=== PATIENT | female | born 1965 | race Caucasian/White ===

== ENCOUNTER 2017-03-04 10:34 | Emergency (ER) | payer OTHER ==
[~2017-03-04] VITALS: Ht 157.5 cm; Wt 78.9 kg
[~2017-03-04 10:34] MED LIST: ALBU8.5H3 INH; CITA-104 PO; GLIM2TAB PO; GLIPIZIDE; METF500T4 PO; METFORMIN; SITA100T8 PO; TAMS0.4C2 PO; TRAM50TA2 PO; TRAMADOL; TRAZ50TA18 PO
[2017-03-04 10:39] VITALS: Ht 157.5 cm; Wt 78.9 kg
[2017-03-04] MEDS ORDERED: ONDANSETRON 4 MG INJ IV STA (11:02)
[2017-03-04] MEDS ORDERED: SOD CHLORIDE 0.9% 1,000 ML IV STA (11:02)
[2017-03-04] MEDS ORDERED: KETOROLAC 30 MG INJ IV STA (11:02)
[2017-03-04 11:59] LABS: ALBUMIN 4.8 g/dl (3.3-4.9); ALBUMIN/GLOBULIN RATIO 1.06; BILIRUBIN,INDIRECT 0.6 mg/dl (0-1.1); BILIRUBIN,TOTAL 0.6 mg/dl (0.2-1.3); CALCIUM 10.1 mg/dl (8.4-10.2); CREATININE 0.56 mg/dl (0.44-1.00); TOTAL PROTEIN 9.3 g/dl (6.1-8.1)
[2017-03-04 12:00] LABS: ADD UMIC YES; UR ASCORBIC ACID NEGATIVE (NEGATIVE); UR BACTERIA FEW /HPF (NONE SEEN); UR BILIRUBIN (Dip) NEGATIVE (NEGATIVE); UR BLOOD (Dip) NEGATIVE (NEGATIVE); UR CLARITY SLIGHTLY CLOUDY (CLEAR); UR COLOR YELLOW (YELLOW); UR GLUCOSE (Dip) NEGATIVE (NEGATIVE); UR KETONES (Dip) NEGATIVE (NEGATIVE); UR LEUKOCYTE ESTERASE (Dip) 2+ Leu/ul (NEGATIVE); UR MUCUS FEW /HPF (NONE SEEN); UR NITRITE (Dip) NEGATIVE (NEGATIVE); UR RBC 3 /HPF (0-5); UR SPECIFIC GRAVITY (Dip) 1.019 (1.003-1.030); UR SQUAMOUS EPITHELIAL CELL MODERATE /HPF (FEW); UR TOTAL PROTEIN (Dip) NEGATIVE (NEGATIVE); UR UROBILINOGEN (Dip) NEGATIVE (NEGATIVE)
[2017-03-04 12:07] LABS: BASOPHILS % 0.3 % (0.0-2.0); EOSINOPHILS # 0.1 10^3/ul (0.0-0.5); EOSINOPHILS % 0.9 % (0.0-7.0); HEMATOCRIT 41.1 % (37.0-47.0); HEMOGLOBIN 13.9 g/dl (12.0-16.0); LYMPHOCYTES # 2.3 10^3/ul (0.8-2.9); LYMPHOCYTES % 33.2 % (15.0-51.0); MEAN CORPUSCULAR HEMOGLOBIN 29.6 pg (29.0-33.0); MEAN CORPUSCULAR HGB CONC 33.8 g/dl (32.0-37.0); MEAN CORPUSCULAR VOLUME 87.4 fl (82.0-101.0); MEAN PLATELET VOLUME 10.8 fl (7.4-10.4); MONOCYTE # 0.4 10^3/ul (0.3-0.9); MONOCYTES % 5.7 % (0.0-11.0); NEUTROPHILS % 59.6 % (39.0-77.0); PLATELET COUNT 247 10^3/UL (140-415); RED CELL DISTRIBUTION WIDTH 12.8 % (11.5-14.5)
--- NOTE | 2017-03-04 12:56 | RADRPT ---
PROCEDURE: CT Abdomen and Pelvis without contrast. CLINICAL INDICATION: Diarrhea, lower abdominal pain TECHNIQUE: CT of the abdomen and pelvis was performed on a multi-detector scanner without IV contr ast. Coronal and sagittal images were reformatted from the axial data set. One or more of the foll owing dose reduction techniques were used: automated exposure control, adjustment of the mA and/or k V according to patient size, use of iterative reconstruction technique. CTDI = 20.33 mGy. DLP = 124 6.34 mGy-cm. COMPARISON: CT, 09/07/2015 FINDINGS: CT abdomen: The lung bases are clear. The heart size is normal, without pericardial effusion. The liver is fat ty infiltrated, without evidence of focal mass. Gallbladder is surgically absent. Biliary tree, pa ncreas, spleen and adrenal glands are unremarkable. Small nonobstructive renal calculi are seen fahad aterally, without ureterolithiasis or obstructive uropathy. Chronic renal cortical scarring is seen on the right as well. The stomach is grossly unremarkable. The aorta is of normal caliber. There is no retroperitoneal lymphadenopathy. The jay hepatis reg ion is clear. CT pelvis: No bowel obstruction, free intraperitoneal air or abscess is identified. Scattered colonic divertic rachel are seen without diverticulitis. The appendix is well visualized and normal. There is no colit is. Fat containing umbilical hernia is noted without incarceration. Urinary bladder is grossly unr emarkable. Uterus is surgically absent. No pelvic mass, free fluid or lymphadenopathy is identifie d. The surrounding osseous structures are remarkable for degenerative enthesopathy of the spine. No os teolytic or osteoblastic lesion is detected. There is chronic bilateral L5 spondylolysis with grade 1 anterolisthesis at L5-S1. IMPRESSION: 1. Hepatic steatosis. 2. Gallbladder and uterus are surgically absent. 3. Small bilateral nonobstructive renal calculi are seen, without ureterolithiasis or obstructive u ropathy. 4. Scattered colonic diverticula, without diverticulitis. 5. Mild fat-containing umbilical hernia, without incarceration, new when compared to the prior CT. 6. No mass, lymphadenopathy, or focal acute inflammatory process is identified. RPTAT: EE .Anatoliy Reyes MD, MD Date Time Electronically viewed and signed by .Anatoliy Reyes MD, MD on 03/04/2017 12:56 .R/
[2017-03-04] MEDS ORDERED: CEPHALEXIN 500 MG CAP PO ONE (13:00)
[2017-03-04] MEDS ORDERED: CEPH-443 PO (13:03)
[2017-03-04] MEDS ORDERED: TRAM-40 PO (13:03)
[2017-03-04] MEDS ORDERED: IBUP-1542 PO (13:03)
--- NOTE | 2017-03-04 13:05 | ERD ---
ER Documentation Chief Complaint Date/Time DATE: 03/04/17 TIME: 13:03 Chief Complaint ap x since last night HPI This 51-year-old female complains of right upper quadrant And right lower quadrant abdominal pain since last night. She denies any fevers or vomiting. Patient gives a history of kidney stones. Patient has an absent gallbladder by history. Patient gives a history of small kidney stones which she was told her past. Her last CT scan was 2 years ago. ROS All systems reviewed and are negative except as per history of present illness. Medications Home Meds Active Scripts Ibuprofen* (Ibuprofen*) 600 Mg Tablet, 600 MG PO Q6, #20 TAB Prov:JONATHAN MAX MD 03/04/17 Tramadol Hcl* (Ultram*) 50 Mg Tablet, 50 MG PO Q6H Y for PAIN, #15 TAB Prov:JONATHAN MAX MD 03/04/17 Cephalexin* (Keflex*) 500 Mg Capsule, 500 MG PO Q6 for 5 Days, #28 CAP Prov:JONATHAN MAX MD 03/04/17 Tramadol HCl (Tramadol HCl) 50 Mg Tablet, 50 MG PO Q4 Y for PAIN, #20 TAB Prov:KRISTIE HUNT PA-C 12/26/15 Tramadol HCl (Tramadol HCl) 50 Mg Tablet, 50 MG PO Q4 Y for PAIN, #20 TAB Prov:PRADIP GUAMAN NP 10/03/15 Tamsulosin Hcl* (Tamsulosin Hcl*) 0.4 Mg Cap.er.24h, 0.4 MG PO DAILY, #30 CAP Prov:YESENIA BELLA PA-C 09/17/15 Albuterol Sulfate* (Proair HFA*) 8.5 Gm Hfa.aer.ad, 2 PUFF INH Q4 for COUGH for 7 Days, INH Prov:JONATHAN MAX MD 03/18/15 Reported Medications [Tramadol] No Conflict Check 12/25/15 [Glipizide] No Conflict Check 12/25/15 [Metformin] No Conflict Check 12/25/15 Sitagliptin* (Januvia*) 100 Mg Tablet, 100 MG PO DAILY, #30 TAB 10/24/15 Metformin* (Glucophage*) 500 Mg Tab, 500 MG PO BID, #60 TAB 07/13/15 Glimepiride* (Glimepiride*) 2 Mg Tablet, 2 MG PO BID, TAB 06/28/15 Citalopram Hydrobromide* (Citalopram Hydrobromide*) 40 Mg Tablet, 40 MG PO DAILY , TAB 06/28/15 Trazodone Hcl* (Trazodone Hcl*) 50 Mg Tablet, 50 MG PO DAILY Y for SLEEP 07/14/13 Allergies Allergies: Coded Allergies: No Known Drug Allergies (Verified Allergy, Unknown, 12/25/15) Uncoded Allergies: PLASTIC TAPE (Allergy, Mild, RASH, 12/25/15) PMhx/Soc History of Surgery: Yes (HYSTERECTOMY) Anesthesia Reaction: No Hx Neurological Disorder: No Hx Respiratory Disorders: Yes (pneumonia) Hx Cardiac Disorders: No Hx Psychiatric Problems: No Hx Miscellaneous Medical Probl: No Hx Alcohol Use: Yes (RARELY) Hx Substance Use: No Hx Tobacco Use: No Physical Exam Vitals Vital Signs Date Time Temp Pulse Resp B/P Pulse Ox O2 Delivery O2 Flow Rate FiO2 03/04/17 10:39 98.5 69 18 140/63 100 Physical Exam Const: [] Head: Atraumatic Eyes: Normal Conjunctiva ENT: Normal External Ears, Nose and Mouth. Neck: Full range of motion..~ No meningismus. Resp: Clear to auscultation bilaterally Cardio: Regular rate and rhythm, no murmurs Abd: Soft, non tender, non distended. Normal bowel sounds Skin: No petechiae or rashes Back: No midline or flank tenderness Ext: No cyanosis, or edema Neur: Awake and alert Psych: Normal Mood and Affect Result Diagram: 03/04/17 1115 03/04/17 1115 Results 24 hrs Laboratory Tests Test 03/04/17 11:15 White Blood Count 7.010^3/ul Red Blood Count 4.7010^6/ul Hemoglobin 13.9g/dl Hematocrit 41.1% Mean Corpuscular Volume 87.4fl Mean Corpuscular Hemoglobin 29.6pg Mean Corpuscular Hemoglobin Concent 33.8g/dl Red Cell Distribution Width 12.8% Platelet Count 24704^3/UL Mean Platelet Volume 10.8fl Neutrophils % 59.6% Lymphocytes % 33.2% Monocytes % 5.7% Eosinophils % 0.9% Basophils % 0.3% Nucleated Red Blood Cells % 0.0/100WBC Neutrophils # (Manual) 410^3/ul Lymphocytes # 2.310^3/ul Monocytes # 0.410^3/ul Eosinophils # 0.110^3/ul Basophils # 0.010^3/ul Nucleated Red Blood Cells # 0.010^3/ul Urine Color YELLOW Urine Clarity SLIGHTLY CLOUDY Urine pH 5.0 Urine Specific Dahlgren 1.019 Urine Ketones NEGATIVEmg/dL Urine Nitrite NEGATIVEmg/dL Urine Bilirubin NEGATIVEmg/dL Urine Urobilinogen NEGATIVEmg/dL Urine Leukocyte Esterase 2+Abundio/ul Urine Microscopic RBC 3/HPF Urine Microscopic WBC 5/HPF Urine Squamous Epithelial Cells MODERATE/HPF Urine Bacteria FEW/HPF Urine Mucus FEW/HPF Urine Hemoglobin NEGATIVEmg/dL Urine Glucose NEGATIVEmg/dL Urine Total Protein NEGATIVEmg/dl Sodium Level 141mmol/L Potassium Level 4.0mmol/L Chloride Level 100mmol/L Carbon Dioxide Level 27mmol/L Anion Gap 18 Blood Urea Nitrogen 11mg/dl Creatinine 0.56mg/dl Glucose Level 159mg/dl Calcium Level 10.1mg/dl Total Bilirubin 0.6mg/dl Direct Bilirubin 0.00mg/dl Indirect Bilirubin 0.6mg/dl Aspartate Amino Transf (AST/SGOT) 47IU/L Alanine Aminotransferase (ALT/SGPT) 61IU/L Alkaline Phosphatase 152IU/L Total Protein 9.3g/dl Albumin 4.8g/dl Globulin 4.50g/dl Albumin/Globulin Ratio 1.06 Current Medications Medications (Trade) Dose Ordered Sig/Kaylynn Route PRN Reason Start Time Stop Time Status Last Admin Dose Admin Sodium Chloride (NS) 1,000 ml @ 1,000 mls/hr Q1H STAT IV 03/04/17 11:02 03/04/17 12:03 DC 03/04/17 11:19 Ondansetron HCl (Zofran Inj) 4 mg ONCE STAT IV 03/04/17 11:02 03/04/17 11:03 DC 03/04/17 11:19 Ketorolac Tromethamine (Toradol) 30 mg ONCE STAT IV 03/04/17 11:02 03/04/17 11:03 DC 03/04/17 11:22 Cephalexin (Keflex) 500 mg ONCE ONCE PO 03/04/17 13:00 03/04/17 13:01 UNV Procedures/MDM HCG is negative. CBC and CMP showed no acute abnormalities. Urine shows leukocyte esterase and few bacteria. There is no significant hemoglobin or blood. CT abdomen pelvis shows small undescended stones without evidence of appendicitis, obstruction, additional acute findings. Patient was given Toradol 30 mg IV and 1 L normal saline IV and felt better after observation treatment. Patient was given Keflex 500 mg by mouth for findings of UTI. There is no current signs of pyelonephritis, sepsis, appendicitis, aortic disease, additional emergent causes of presenting complaints. She will treated with tramadol, Keflex and ibuprofen and instructions for clear fluids and observation at home. The patient was stable with no new complaints during the ER course. Clinically, there is no current evidence to suggest meningitis, sepsis, acute abdomen, pneumonia, acute coronary syndrome, pulmonary embolism, or any other emergent condition appearing to require further evaluation or hospitalization. The patient should certainly return for any new or worsening symptoms per the aftercare instructions. They should otherwise follow-up with her primary care doctor for reevaluation this week. Disclaimer: Inadvertent spelling and grammatical errors are likely due to EHR/ dictation software use and do not reflect on the overall quality of patient care. Also, please note that the electronic time recorded on this note does not necessarily reflect the actual time of the patient encounter. Departure Diagnosis: Primary Impression: UTI (urinary tract infection) Urinary tract infection type: acute cystitis Hematuria presence: without hematuria Qualified Code: N30.00 - Acute cystitis without hematuria Additional Impression: Abdominal pain Abdominal location: lower abdomen, unspecified Qualified Code: R10.30 - Lower abdominal pain Condition: Stable Patient Instructions: Abdominal Pain, Understanding Urinary Tract Infections ( UTIs) Additional Instructions: There are tiny undescended stones but none in the area of pain. There is signs of urinary tract infection and we will treat for this. There are no other acute abnormalities. Drink plenty of fluids and follow-up with primary doctor or return for fevers, vomiting. JONATHAN MAX MD Mar 04, 2017 13:05
== END 2017-03-04 13:19 | disposition home or self-care (01) ==
LOC: FTE 10:34
DX: N30.00 Acute cystitis without hematuria (principal); R10.31 Right lower quadrant pain; Z79.84 Long term (current) use of oral hypoglycemic drugs
CPT/HCPCS: 36415; 74176; 80053; 81001; 84703; 85025; 96374; 96375; J1885; J2405; J7030; Z7502; Z7610